=== PATIENT | male | born 1975 | race Caucasian/White ===

== ENCOUNTER → 2016-05-04 | Day surgery (SDC) | payer OTHER ==
[2016-05-01 08:59] VITALS: BMI 25.0
[~2016-05-04] VITALS: Ht 162.6 cm; Wt 68.2 kg
[~2016-05-04] MED LIST: ATROPINE SULFATE 0.1 MG/ML 5ML SYR IV PRN; BUPIVACAINE/EPINEPHRINE 0.5% MPF 1:200,000 30 ML VIAL INJ ONE; CEFAZOLIN 2000 MG/60 ML D5W IV SCH; DEXAMETHASONE SOD INJ 4 MG/ML VIAL ONE; FENTANYL CITRATE INJ 50 MCG/1 ML 2 ML VIAL IV PRN; FENTANYL CITRATE INJ 50 MCG/1 ML 2 ML VIAL ONE; HEPARIN SOD 5000 UNIT/0.5 ML CARP SC SCH; HYDR-5688 PO; HYDROCODONE/ACETAMOPHEN 5/325MG TAB PO PRN; IBUPROFEN 600 MG TAB PO PRN; KETOROLAC TROMETHAMINE 30 MG/ML VIAL IV. PRN; KETOROLAC TROMETHAMINE 30 MG/ML VIAL ONE; LABETALOL HCL IV 5 MG/ML 20ML IV PRN; LACTATED RINGER'S 1000ML 1,000 ML IV SCH; LIDOCAINE HCL 2% 2 ML VIAL (20MG/ML) ONE; MIDAZOLAM HCL 1 MG/ML 2ML VIAL ONE; MoRPHine SULFATE 10 MG/ML CARP/VIAL IV PRN; MoRPHine SULFATE 4 MG/ML 1 ML CARP\\VIAL IV PRN; ONDANSETRON INJ 2 MG/ML 2 ML VIAL IV PRN; ONDANSETRON INJ 2 MG/ML 2 ML VIAL ONE; PROPOFOL IV EMULSION 10 MG/ML 20 ML VIAL IV ONE; SODIUM CHLORIDE 0.9% 1000ML 1,000 ML IV SCH
[2016-05-04 12:14] VITALS: BP 126/62; PULSE 68; TEMP 36.6; O2SAT 97; Ht 162.6 cm; Wt 68.2 kg
--- NOTE | 2016-05-04 13:50 | Discharge Instructions ---
Discharge Instructions Visit Reason for Visit: Right Inguinal Hernia Discharge Discharge Diagnosis / Problem: hernia repair Discharge Goals Goal(s): Decrease discomfort Activity Recommendations Activity Limitations: per Instructions/Follow-up section Lifting Limitations: no more than 10 pounds Shower/Bathe: no limitations (ok to shower) Driving or Machine Use: resume 3 days after discharge Anesthesia . Post Anesthesia Instructions: If you have had General Anesthesia or IV Sedation: * Do not drive today. * Resume driving when surgeon permits. * Do not make important decisions or sign legal documents today. * Call surgeon for: 1. Temperature elevations greater than 101 degrees F. 2. Uncontrollable pain. 3. Excessive bleeding. 4. Persistent nausea and vomiting. 5. Medication intolerance (nausea, vomiting or rash). * For nausea and vomiting use only clear liquids such as: tea, soda, bouillon until nausea subsides, then gradually increase diet as tolerated. * If you have any concerns or questions, call your surgeon's office. If physician is unavailable and it is an emergency, call 911 or go to the nearest emergency room. . Instructions / Follow-Up Instructions / Follow-Up Dr. Rodriguez's office in 1-2 weeks, call [phone] if you do not already have an appt Ice right groin off and on alternating every 20 minutes until bedtime Diet Recommendations Recommended Home Diet: no limitations Pending Studies Studies pending at discharge: no Medical Emergencies . Who to Call and When: Medical Emergencies: If at any time you feel your situation is an emergency, please call 911 immediately. . Non-Emergent Contact Non-Emergency issues call your: Surgeon Call Non-Emergent contact if: you have a fever, temperature is above 101.5, your pain is not controlled, wound has increased redness . . "Provider Documentation" section prepared by Octavio Wei.
--- NOTE | 2016-05-04 14:07 | History & Physical Bridge Note ---
H&P Re-Evaluation Bridge Note: I have examined the patient, reviewed the History & Physical and in the interval since the performance of the History & Physical I have noted the following changes of clinical significance: No changes noted
--- NOTE | 2016-05-04 15:27 | [facility] Operative Report ---
Operative Report Operative Date May 04, 2016. Pre-Operative Diagnosis Right Inguinal Hernia Post-Operative Diagnosis direct and indirect [facility] Procedure(s) Performed open right inguinal hernia repair with mesh Surgeon Dr. Rodriguez Bevel Gear Generator Operator Surgeon(s) Octavio Wei PA-C Estimated Blood Loss 10ml Findings direct and indirect inguinal hernia Specimens none Complication(s) None Disposition Recovery Room / PACU I attest to the content of the Intraoperative Record and any orders documented therein. Any exceptions are noted below.
--- NOTE | 2016-05-04 16:03 | Anesthesiology Progress Note ---
Anesthesia Post Op Note Date & Time May 04, 2016 at 16:02 Vital Signs Pain Intensity: 0 Vital Signs Past 12 Hours Date Time Temp Pulse Resp B/P Pulse Ox O2 Delivery O2 Flow Rate FiO2 05/04/16 15:55 36.6 72 14 110/58 100 Nasal Cannula 2 05/04/16 15:45 62 14 104/51 100 Mask 5 05/04/16 15:35 65 14 98/51 98 Mask 10 05/04/16 15:29 36.5 66 14 99/49 98 Mask 10 05/04/16 12:14 36.6 68 16 126/62 97 Room Air Notes Mental Status: alert / awake / arousable, participated in evaluation Pt Amnestic to Procedure: Yes Nausea / Vomiting: adequately controlled Pain: adequately controlled Airway Patency, RR, SpO2: stable & adequate BP & HR: stable & adequate Hydration State: stable & adequate Anesthetic Complications: no major complications apparent
[2016-05-04 16:10] VITALS: BP 113/62; PULSE 59; TEMP 36.3; O2SAT 100
[2016-05-04 16:41] VITALS: BP 114/51; PULSE 60; O2SAT 97
[2016-05-04 17:11] VITALS: BP 110/49; PULSE 62; TEMP 36.5; O2SAT 97
--- NOTE | 2016-05-05 09:26 | OPERATIVE REPORT ---
DATE OF OPERATION: 05/04/2016 PREOPERATIVE DIAGNOSIS: Right inguinal hernia. POSTOPERATIVE DIAGNOSIS: Direct and indirect right inguinal hernias. PROCEDURE: Open right inguinal hernia repair with mesh. SURGEON: Dr. Rodriguez. [employer] OPERATOR: Chidi Wei PA-C. ESTIMATED BLOOD LOSS: Approximately 15 mL. COMPLICATIONS: No immediate complications. ANESTHESIA: General with laryngeal mask airway. OPERATION AND FINDINGS: OPERATIVE NOTE: After informed consent was obtained, the patient was taken to the operating suite and placed in supine position. After successful placement of laryngeal mask airway the right groin was shaved. A Tin[place] catheter was placed and the right groin was sterilely prepped and draped in usual fashion. I made an incision in the right groin with a 10 blade scalpel and carried it down through the soft tissue using electrocautery. I skeletonized the external oblique aponeurosis and then incised it with a fresh 15 blade scalpel. Metzenbaum scissors were used to extend this distally through the external ring as well as for several centimeters proximally. Once in the inguinal canal, we used primarily blunt dissection to free the cord and cord structures from surrounding anatomy. We were able to slightly tease it off the pubic bone, place a finger around the cord structures as well as a [place] drain. We immediately noticed a moderate sized direct defect coming up through the floor of the canal. When we inspected the cord and cord structures we also noted an indirect sac. We were able to tease the sac off of the cord structures using blunt dissection as well as a small amount of electrocautery. Once we were able to get the sac the whole way down to its neck we were able to divide the sac and tie it off using 2-0 Vicryl and then dunked the trunk of the sac back down into the abdominal cavity. We did thoroughly irrigate the wound. We used a piece of polypropylene lopez-holed mesh as an onlay. We secured it distally to Manuel's ligament, laterally along the shelving portion of Poupart's ligament, and medially along the midline musculature. The "arms" of the mesh were wrapped around behind the cord and cord structures and secured to underlying muscle. We used 0 Ethibond suture throughout procedure to secure the mesh. We thoroughly irrigated the wound again. There was adequate hemostasis. The mesh laid nice and tension free and was not impinging on the cord structures. I was happy with the repair. We then closed the external oblique aponeurosis using 2-0 Vicryl in a running fashion. Soft tissue was irrigated and closed using 3-0 Vicryl and 4-0 Monocryl for the skin. Marcaine prior to closure was injected around the edges of the mesh. We also injected the skin at the end of the case for postoperative analgesia. Skin glue was used as a dressing. The patient was awakened, extubated, and transferred to recovery in stable condition. I attest to the content of the Intraoperative Record and any orders documented therein. Any exceptio ns are noted below.
== END | disposition home or self-care (01) ==
LOC: C.ACU 12:00
PROVIDERS: ATTEND Surgery
DX: K40.90 Unilateral inguinal hernia, without obstruction or gangrene, not specified as recurrent (principal); Z87.828 Personal history of other (healed) physical injury and trauma

== ENCOUNTER → 2016-10-08 | Outpatient (CLI) | payer OTHER ==
[~2016-10-08] MED LIST changes: -ATROPINE SULFATE 0.1 MG/ML 5ML SYR IV PRN; -BUPIVACAINE/EPINEPHRINE 0.5% MPF 1:200,000 30 ML VIAL INJ ONE; -CEFAZOLIN 2000 MG/60 ML D5W IV SCH; -DEXAMETHASONE SOD INJ 4 MG/ML VIAL ONE; -FENTANYL CITRATE INJ 50 MCG/1 ML 2 ML VIAL IV PRN; -FENTANYL CITRATE INJ 50 MCG/1 ML 2 ML VIAL ONE; +GADAVIST IV PRN; -HEPARIN SOD 5000 UNIT/0.5 ML CARP SC SCH; -HYDROCODONE/ACETAMOPHEN 5/325MG TAB PO PRN; -IBUPROFEN 600 MG TAB PO PRN; -KETOROLAC TROMETHAMINE 30 MG/ML VIAL IV. PRN; -KETOROLAC TROMETHAMINE 30 MG/ML VIAL ONE; -LABETALOL HCL IV 5 MG/ML 20ML IV PRN; -LACTATED RINGER'S 1000ML 1,000 ML IV SCH; -LIDOCAINE HCL 2% 2 ML VIAL (20MG/ML) ONE; -MIDAZOLAM HCL 1 MG/ML 2ML VIAL ONE; -MoRPHine SULFATE 10 MG/ML CARP/VIAL IV PRN; -MoRPHine SULFATE 4 MG/ML 1 ML CARP\\VIAL IV PRN; -ONDANSETRON INJ 2 MG/ML 2 ML VIAL IV PRN; -ONDANSETRON INJ 2 MG/ML 2 ML VIAL ONE; -PROPOFOL IV EMULSION 10 MG/ML 20 ML VIAL IV ONE; -SODIUM CHLORIDE 0.9% 1000ML 1,000 ML IV SCH
--- NOTE | 2016-10-08 15:55 | DIAGNOSTIC IMAGING REPORT ---
ORBIT RADIOGRAPHS 3 VIEWS HISTORY: Pre-MRI pre-MRI screening. COMPARISON: None. FINDINGS: There are no radiopaque foreign bodies identified within the orbits. IMPRESSION: No radiopaque foreign bodies identified within the orbits. Electronically signed by: Otto Orellana M.D. 10/08/2016 3:54 PM Dictated Date/Time: 10/08/2016 3:54 PM
--- NOTE | 2016-10-08 16:57 | DIAGNOSTIC IMAGING REPORT ---
PELVIS MRI WITH AND WITHOUT INTRAVENOUS CONTRAST HISTORY: PUBIC BONE PAIN TECHNIQUE: Multiplanar multisequence MRI of the pelvis was performed both before and after the intravenous administration of contrast. COMPARISON STUDY: None. FINDINGS: Mild marrow edema within the medial aspect of the bilateral pubic bones with small marginal osteophytes and subchondral sclerosis at the symphysis pubis. 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 No acute fracture or dislocation within the pelvis or hips. Prior right inguinal hernia repair. No evidence for recurrent hernia. The bladder is unremarkable. No pelvic free fluid. No hip effusions. Cartilage spaces within the hips are maintained for age. Small focal areas of marrow edema within the sacrum adjacent to the bilateral sacroiliac joints. This is nonspecific but favors mild degenerative change. Small T2 hyperintense focus within the right posterior iliac bone measuring 7 mm. This is of doubtful clinical significance. IMPRESSION: 1. 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 2. Prior right inguinal hernia repair. No evidence for recurrent hernia. 3. No fracture or dislocation within the pelvis or hips. Electronically signed by: Rishabh Sykes M.D. 10/08/2016 4:55 PM Dictated Date/Time: 10/08/2016 4:49 PM
== END | disposition home or self-care (01) ==
LOC: C.MRI 15:30
PROVIDERS: ATTEND Surgery
DX: M89.9 Disorder of bone, unspecified (principal); M86.9 Osteomyelitis, unspecified

== ENCOUNTER 2017-09-01 21:03 | Emergency (ER) | payer OTHER ==
[~2017-09-01] VITALS: Ht 162.6 cm; Wt 73.3 kg
[~2017-09-01 21:03] MED LIST changes: +AMT10 PO; -GADAVIST IV PRN; -HYDR-5688 PO
[2017-09-01 21:12] VITALS: TEMP 36.9; Ht 162.6 cm; Wt 73.3 kg
[2017-09-01] MEDS ORDERED: KETOROLAC TROMETHAMINE 30 MG/ML VIAL IV STA (21:32)
[2017-09-01] MEDS ORDERED: OPTIRAY 320 IV PRN (21:45)
[2017-09-01 22:00] LABS: BASO % 0.6 %; BASO ABS # 0.05 K/uL (0-0.2); EOS % 1.9 %; EOS ABS # 0.16 K/uL (0-0.5); HEMATOCRIT 42.8 % (42-52); HEMOGLOBIN 15.5 g/dL (14.0-18.0); IG# 0.02 K/uL (0.00-0.02); LYMPH % 34.6 %; LYMPH ABS # 2.89 K/uL (1.2-3.4); MEAN CELL VOLUME 85.1 fL (80-100); MEAN CORPUSCULAR HEMOGLOBIN 30.8 pg (25-34); MEAN CORPUSCULAR HGB CONC 36.2 g/dl (32-36); MEAN PLATELET VOLUME 8.4 fL (7.4-10.4); NEUT % 56.7 %; NEUT ABS # 4.74 K/uL (1.4-6.5); PLATELET COUNT 183 K/uL (130-400); RED CELL DISTRIBUTION WIDTH CV 13.3 % (11.5-14.5); RED CELL DISTRIBUTION WIDTH SD 41.3 fL (36.4-46.3); WHITE BLOOD COUNT 8.36 K/uL (4.8-10.8)
[2017-09-01 22:20] LABS: ALBUMIN 4.2 gm/dl (3.4-5.0); CALCIUM 8.5 mg/dl (8.5-10.1); CREATININE 1.04 mg/dl (0.60-1.40); POTASSIUM 3.6 mmol/L (3.5-5.1); TOTAL PROTEIN 7.6 gm/dl (6.4-8.2)
[2017-09-01 23:35] VITALS: BP 124/70; PULSE 66; O2SAT 98
--- NOTE | 2017-09-01 23:57 | EMERGENCY ROOM VISIT NOTE ---
History First contact with patient: 21:24 Chief Complaint: ABDOMINAL PAIN Stated Complaint: PAIN IN STOMACH FROM HERNIA AND NERVE BLOCK Nursing Triage Summary: Ambulates to room. Report RLQ abd pain. Pt reports pain RLQ since he had his hernia surgery. Pt reports had a nerve block a few days ago with no relief. Pt reported the continual pain to pain management and he was told it could take up two weeks to get relief. History of Present Illness The patient is a 42 year old male who presents to the Emergency Room with complaints of right lower quadrant abdominal pain. The patient reports that he has had chronic pain in the right lower abdomen since having a hernia surgery at the beginning of last year. He has been seeing pain management and has had steroid injections, nerve blocks and also had the nerve cauterized. He had a nerve block last week and has had increased pain since then. He states that the pain is a constant, aching pain which is sharp and piercing at times. The pain seems to be worsened with movement. He rates his discomfort a 10/10. He denies history of any other abdominal surgeries. He denies nausea or vomiting. He does report that he has alternating constipation and diarrhea, which has been chronic since the surgery. He feels that he has increased frequency of urination. He denies any fevers or dysuria. Review of Systems A complete 10 point review of systems was reviewed with the patient with pertinent positives and negatives as per history of present illness. All else were negative. Past Medical/Surgical History Medical Problems: (1) Tonsillectomy (2) ulcers Social History Smoking Status: Never Smoker Alcohol Use: occasionally Drug Use: none Marital Status: Housing Status: lives with family Occupation Status: employed Current/Historical Medications Scheduled Amitriptyline HCl (Amitriptyline HCl), 10 MG PO DAILY Physical Exam Vital Signs Date Time Temp Pulse Resp B/P (MAP) Pulse Ox O2 Delivery O2 Flow Rate FiO2 09/01/17 23:35 66 16 124/70 98 Room Air 09/01/17 21:12 36.9 57 18 124/79 97 Room Air Physical Exam VITALS: Vitals are noted on the nurse's note and reviewed by myself. Vital signs stable. GENERAL: This is a 42-year-old male, in no acute distress, nondiaphoretic, well- developed well-nourished. SKIN: The skin was without rashes. EYES: PERRLA. MOUTH: Mucous membranes moist. NECK: Supple, no rigidity. HEART: Regular rate and rhythm without murmurs gallops or rubs. LUNGS: Clear to auscultation bilaterally without wheezes, rales or rhonchi. ABDOMEN: Well-healed surgical scar noted in the right lower quadrant. Positive bowel sounds x 4. Tenderness to palpation of the right lower quadrant. No guarding or rebound tenderness. NEURO: Patient was alert and oriented to person place and time. PSYCH: Appropriate affect. Medical Decision & Procedures ER Provider Diagnostic Interpretation: CT ABDOMEN & PELVIS With Contrast: Impression: No acute abnormality identified. Findings: The liver, spleen, pancreas, gallbladder, adrenal glands, kidneys, ureters, and bladder have a normal noncontrast appearance. There is no evidence of bowel obstruction or acute appendicitis. Moderate colonic stool burden. No abnormal bowel wall thickening is seen. Radiologist: Joseluis Quiroz MD Laboratory Results 09/01/17 21:45 Red Blood Count 5.03, Mean Corpuscular Volume 85.1, Mean Corpuscular Hemoglobin 30.8, Mean Corpuscular Hemoglobin Concent 36.2, Mean Platelet Volume 8.4, Neutrophils (%) (Auto) 56.7, Lymphocytes (%) (Auto) 34.6, Monocytes (%) (Auto) 6.0, Eosinophils (%) (Auto) 1.9, Basophils (%) (Auto) 0.6, Neutrophils # (Auto) 4.74, Lymphocytes # (Auto) 2.89, Monocytes # (Auto) 0.50, Eosinophils # (Auto) 0.16, Basophils # (Auto) 0.05 09/01/17 21:45 Test 09/01/17 21:30 09/01/17 21:45 Urine Color YELLOW Urine Appearance CLEAR (CLEAR) Urine pH 6.0 (4.5-7.5) Urine Specific [place] 1.020 (1.000-1.030) Urine Protein NEG (NEG) Urine Glucose (UA) NEG (NEG) Urine Ketones NEG (NEG) Urine Occult Blood NEG (NEG) Urine Nitrite NEG (NEG) Urine Bilirubin NEG (NEG) Urine Urobilinogen NEG (NEG) Urine Leukocyte Esterase NEG (NEG) White Blood Count 8.36 K/uL (4.8-10.8) Red Blood Count 5.03 M/uL (4.7-6.1) Hemoglobin 15.5 g/dL (14.0-18.0) Hematocrit 42.8 % (42-52) Mean Corpuscular Volume 85.1 fL (80-100) Mean Corpuscular Hemoglobin 30.8 pg (25-34) Mean Corpuscular Hemoglobin Concent 36.2 g/dl (32-36) Platelet Count 183 K/uL (130-400) Mean Platelet Volume 8.4 fL (7.4-10.4) Neutrophils (%) (Auto) 56.7 % Lymphocytes (%) (Auto) 34.6 % Monocytes (%) (Auto) 6.0 % Eosinophils (%) (Auto) 1.9 % Basophils (%) (Auto) 0.6 % Neutrophils # (Auto) 4.74 K/uL (1.4-6.5) Lymphocytes # (Auto) 2.89 K/uL (1.2-3.4) Monocytes # (Auto) 0.50 K/uL (0.11-0.59) Eosinophils # (Auto) 0.16 K/uL (0-0.5) Basophils # (Auto) 0.05 K/uL (0-0.2) RDW Standard Deviation 41.3 fL (36.4-46.3) RDW Coefficient of Variation 13.3 % (11.5-14.5) Immature Granulocyte % (Auto) 0.2 % Immature Granulocyte # (Auto) 0.02 K/uL (0.00-0.02) Anion Gap 4.0 mmol/L (3-11) Est Creatinine Clear Calc Drug Dose 84.0 ml/min Estimated GFR () 101.4 Estimated GFR (Non- 87.5 BUN/Creatinine Ratio 28.6 (10-20) Calcium Level 8.5 mg/dl (8.5-10.1) Total Bilirubin 0.3 mg/dl (0.2-1) Aspartate Amino Transf (AST/SGOT) 23 U/L (15-37) Alanine Aminotransferase (ALT/SGPT) 41 U/L (12-78) Alkaline Phosphatase 78 U/L (45-117) Total Protein 7.6 gm/dl (6.4-8.2) Albumin 4.2 gm/dl (3.4-5.0) Globulin 3.4 gm/dl (2.5-4.0) Albumin/Globulin Ratio 1.2 (0.9-2) Medications Administered Medications (Trade) Dose Ordered Sig/Konrad Route Start Time Stop Time Status Last Admin Dose Admin Ketorolac Tromethamine (Toradol Inj) 30 mg NOW STAT IV 09/01/17 21:32 09/01/17 21:33 DC 09/01/17 21:55 30 MG Medical Decision Differential diagnosis includes abscess, appendicitis, acute exacerbation of chronic abdominal pain, kidney stone, UTI, diverticulitis, colitis, among others. The patient is a 42-year-old male who presents today complaining of right lower quadrant abdominal pain. Labs revealed no leukocytosis, anemia or concerning electrolyte abnormalities. Urinalysis was not suggestive of infection. CT of the abdomen and pelvis was performed and read by dajuanrad with no acute findings. Patient does admit to a history of chronic abdominal pain and this may be an exacerbation of his pain. He was advised to contact his pain management provider to discuss this visit with them. The patient's case was reviewed with Dr. Olea, ED attending physician, who agreed with my assessment and treatment plan. Based on the patient's presentation and work up, I feel the patient is stable for outpatient treatment. The patient was educated to return to the emergency department for any worsening of their current condition or new/concerning symptoms. He will follow up with his PCP. Medication Reconcilliation Current Medication List: was personally reviewed by me Blood Pressure Screening Patient's blood pressure: Normal blood pressure Impression Primary Impression: Right lower quadrant abdominal pain Departure Information Dispostion Home / Self-Care Condition GOOD Referrals Petar Tinajero III, M.D. (PCP) Patient Instructions [facility] Additional Instructions You have been treated in the Emergency Department for your Abdominal Pain. Laboratory results and imaging studies have ruled out any emergent causes for your abdominal pain which would warrant admission or surgery. For pain control, you can use the following [id number] medicines (if >12 yo): - Regular strength (325mg/tab) Tylenol (acetaminophen) 2 tabs every 4-6 hours as needed. Do not exceed 12 tablets in a 24 hour period. Avoid taking more than 4 grams (4000 mg) of Tylenol per day. This includes any other sources of acetaminophen you may take on a regular basis. - Regular strength (200 mg/tab) Advil (ibuprofen) 1-2 tabs every 4-6 hours as needed. Do not exceed a dose of 3200 mg per day. Drink plenty of water and stay well hydrated. As with any trip to the Emergency Department, you should follow-up with your Primary Care Provider from today's visit. You should also contact your pain management provider regarding her abdominal pain. Return to the emergency department if your symptoms persist despite treatment plan outlined above or if the following symptoms occur: Worsening pain, fevers, vomiting, or other new/concerning symptoms.
--- NOTE | 2017-09-02 07:12 | DIAGNOSTIC IMAGING REPORT ---
ABDOMEN AND PELVIS CT WITH IV CONTRAST CT DOSE: 325.73 mGy.cm HISTORY: Acute right lower quadrant abdominal pain RLQ pain, worsening chronic pain, recent nerve block TECHNIQUE: Multiaxial CT images of the abdomen and pelvis were performed following the use of intravenous contrast. A dose lowering technique was utilized adhering to the principles of ALARA. COMPARISON STUDY: CT abdomen and pelvis 11/22/2007. FINDINGS: Mild dependent subsegmental bibasilar atelectasis. Calcified granuloma about the medial segment right middle lobe. There is no pneumatosis or pneumoperitoneum. The imaged inferior cardiac chambers are unremarkable. The liver, gallbladder, spleen, pancreas and adrenal glands are within normal limits. Kidneys are within normal limits with the exception of a 5 mm low attenuating lesion of the posterior interpolar right kidney suggesting renal cyst. No renal calculi or obstructive uropathy. Ureters and bladder are unremarkable. Suggestion of a small bilateral hydroceles. Aorta and IVC are unremarkable. There is no bulky adenopathy. No bowel obstruction or focal bowel wall thickening. Mild to moderate volume of formed stool throughout the colon. Normal appendix. No ascites or mesenteric inflammatory changes. The soft tissues are within normal limits. The bones appear to be intact. Moderate intervertebral disc space narrowing with posterior disc osteophyte complex formation at L5-S1. IMPRESSION: 1. No acute intra-abdominal or intrapelvic abnormality identified. 2. Normal appendix. 3. Prior granulomatous disease. 4. Suggestion of small bilateral hydroceles. Electronically signed by: Alonso Palm M.D. 09/02/2017 7:11 AM Dictated Date/Time: 09/02/2017 7:08 AM
== END 2017-09-02 00:12 | disposition home or self-care (01) ==
LOC: C.EDB 21:04 → C.EDC 09-02 00:12
DX: R10.31 Right lower quadrant pain (principal); G89.29 Other chronic pain; Z79.899 Other long term (current) drug therapy

== ENCOUNTER 2018-11-08 21:12 | Observation (INO) ==
--- OUTSIDE RECORDS SUMMARY | 2018-11-08 21:15 | External Medical Summary | Continuity of Care Document ---
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 Start: 20-Sep-2017 Refills: 0 Procedures History of Tonsillectomy Status: Complet ed History of Inguinal Hernia Repair Status : Completed 04-May-2016 0:00 Immunizations Immunizations not documented Family History Mother Family history of In good health Status: Active Father Family history of In good health Status: Active Social History - Smoking Status Former smoker Plan of Treatment Planned Observations Planned Goals not documented Results No Known Results Results not documented Encounters Appointment; Surg [facility], Nursing Station 15-Nov-2017 13:45 Encounter Diagnosis: Problem not documented Appointment; Akbar Rodriguez DO 20-Sep-2017 10:20 Encounter Diagnosis: Problem not documented
[2018-11-08 21:50] LABS: Basophils # (auto) 0.05 K/uL (0-0.2); Basophils % (auto) 0.7 %; Eosinophils # (auto) 0.26 K/uL (0-0.5); Eosinophils % (auto) 3.6 %; Hematocrit (blood only) 44.7 % (42-52); Hemoglobin 15.8 g/dL (14.0-18.0); Immature Granulocytes # (auto) 0.01 K/uL (0.00-0.02); Immature Granulocytes % (auto) 0.1 %; Lymphocytes # (auto) 2.45 K/uL (1.2-3.4); Lymphocytes % (auto) 34.1 %; Mean Corpuscular Hgb Conc 35.3 g/dL (32-36); Mean Corpuscular Volume 83.7 fL (80-100); Monocytes # (auto) 0.46 K/uL (0.11-0.59); Monocytes % (auto) 6.4 %; Neutrophils # (auto) 3.96 K/uL (1.4-6.5); Neutrophils % (auto) 55.1 %; Platelet Count 197 K/uL (130-400); RDW Coefficient of Variation 13.2 % (11.5-14.5); RDW Standard Deviation 39.5 fL (36.4-46.3); Red Blood Count 5.34 M/uL (4.7-6.1); White Blood Count 7.19 K/uL (4.8-10.8)
[2018-11-08 22:06] LABS: Alanine Aminotransferase 35 U/L (12-78); Aspartate Aminotransferase 21 U/L (15-37); BUN Creatinine Ratio 19.2 (10-20); Blood Urea Nitrogen 20 mg/dl (7-18); Calcium 8.7 mg/dl (8.5-10.1); Carbon Dioxide 22 mmol/L (21-32); Chloride 107 mmol/L (98-107); Creatinine Clr Calc Pharmacy 84.6 ml/min; Est GFR (African American) 100.7; Est GFR (Non-African American) 86.9; Glucose 130 mg/dl (70-99); Sodium 140 mmol/L (136-145)
[2018-11-08 22:11] LABS: Albumin Globulin Ratio 1.2 (0.9-2); Alkaline Phosphatase 101 U/L (45-117); Bilirubin,Total 0.2 mg/dl (0.2-1); Globulin 3.4 gm/dl (2.5-4.0); Total Protein 7.4 gm/dl (6.4-8.2); Troponin I < 0.015 ng/ml (0-0.045)
[2018-11-08 22:21] LABS: INR 1.1 (0.9-1.1); Partial Thromboplastin Time 26.5 Seconds (21.0-31.0); Prothrombin Time 11.3 Seconds (9.0-12.0)
--- NOTE | 2018-11-08 22:26 | XRay Report ---
XR chest 1V portable CLINICAL HISTORY: Chest Pain dyspnea COMPARISON STUDY: No previous studies for comparison. FINDINGS: The bones soft tissues and hemidiaphragms are normal. The cardiomediastinal silhouette is n ormal. The lungs are clear. The pulmonary vasculature is normal. Minimal parenchymal infiltrative luisana nge medial right base IMPRESSION: Minimal parenchymal infiltrative change right base. Otherwise negative chest. The above report was generated using voice recognition software. It may contain grammatical, syntax or spelling errors. Electronically signed by: Otto Orellana M.D. 11/08/2018 10:25 PM
[2018-11-08] MEDS ORDERED: POTASSIUM CHLORIDE 20 MEQ TABCR PO STA (23:55)
--- NOTE | 2018-11-09 00:50 | Emergency Department Note ---
History of Present Illness General Chief complaint: Chest Pain Stated complaint: CHEST PAIN Source: patient Mode of arrival: ambulatory Limitations: no limitations History of Present Illness Maximum Pain Intensity: 6 This patient is a 43-year-old male who presents to the emergency department complaining of chest pain. The patient states that he has been having intermittent chest pain over the past 2 weeks. He states that the pain occurs at random, but mostly at night. He does occasionally have pain throughout the day as well. He states that the pain is not brought on by exertion necessarily, but he does have some shortness of breath with exertion. The pain radiates from his left chest into his left shoulder and arm. It is associated with shortness of breath, occasional diaphoresis and lightheadedness. The pain is occasionally relieved by walking around. Otherwise, there are no aggravating or alleviating factors. He does not try any medication for the pain. He states that he had an episode of pain beginning 2 hours prior to arrival. This has gradually resolved. Patient states that he had a hernia surgery 3 months ago and has residual pain from this. He also has been working 85 hours/week and has been very stressed due to this and his chronic pain. He denies any past medical history of cardiac disease. He denies history of hypertension or hyperlipidemia. He is a former smoker. He is unsure of his family history. Home Medications Home Medications Medication Instructions Recorded Confirmed Type Protein Shake 1 dose PO DAILY 12/27/17 11/08/18 History cyclobenzaprine 2.5 mg PO ONCE 11/08/18 11/08/18 History gabapentin 300 mg PO HS 11/08/18 11/08/18 History Allergies Allergy/AdvReac Type Severity Reaction Status Date / Time No Known Allergies Allergy Verified 12/27/17 19:07 Past Med/Surg History Medical History Right lower quadrant abdominal pain (Acute) Genitofemoral neuralgia of right side Social History Preferred Language: Tamazight Communication Ability: Effective Beliefs That Will Affect Care: None Current Living Situation: Spouse Other Information That Helps Us Care for You: Yes Feels Safe at Home: Yes Smoking Status: Never smoker Hx Alcohol Use: Yes Alcohol type: hard liquor Hx Substance Use: No Review of Systems A total of 10 systems reviewed and were otherwise negative Physical Exam Vital Signs Vital Signs - 24 hr 11/08/18 21:14 11/08/18 23:40 Temperature 36.8 C Temperature Source Oral Sepsis Recent Fever Within 48 Hours No Sepsis Action Taken by Nursing No Action Required Pulse Rate 86 Pulse Rate [Apical] 73 Respiratory Rate 18 18 Respiratory Effort / Characteristics Non-Labored Respiratory Depth Normal Normal Blood Pressure 136/83 Blood Pressure [Right Arm] 126/69 Blood Pressure Mean 100 Blood Pressure Mean [Right Arm] 88 Pulse Oximetry 96 97 Oxygen Delivery Method Room Air Room Air VITALS: Vitals are noted on the nurse's note and reviewed by myself. Vital signs stable. GENERAL: This is a 43-year-old male, in no acute distress, nondiaphoretic, well- developed well-nourished. SKIN: The skin was without rashes, erythema, edema, or bruising. There is no tenting of the skin. Capillary reflex less than 2 seconds. EARS: External auditory canals clear, tympanic membranes pearly gibson without erythema or effusion bilaterally. EYES: Pupils equal round and reactive to light and accommodation. MOUTH: Mucous membranes moist. Tonsils are not enlarged. Pharynx without erythema or exudate. NECK: Supple without nuchal rigidity. No lymphadenopathy. HEART: Regular rate and rhythm without murmurs gallops or rubs. LUNGS: Clear to auscultation bilaterally without wheezes, rales or rhonchi. No retractions or accessory muscle use. MUSCULOSKELETAL: Full range of motion throughout. Strength 5/5 throughout. NEURO: Patient was alert and oriented to person place and time. Course Consultations Consultation #1: Case was discussed with Dr. Kohli, [facility]. He will evaluate the patient for admission/observation. Administered Medications Sodium Chloride (Nss 1000ml) 1,000 mls @ 80 mls/hr IV .[id number] Stop: 11/09/18 16:00 Last Admin: 11/09/18 03:01 Dose: 80 mls/hr Documented by: [id number] Discontinued Medications Potassium Chloride (Klor-Con M20) 40 meq PO NOW STA Stop: 11/08/18 23:56 Last Admin: 11/09/18 00:08 Dose: 40 meq Documented by: [id number] Potassium Chloride (Klor-Con M20) 60 meq PO NOW STA Stop: 11/09/18 01:56 Last Admin: 11/09/18 03:01 Dose: 60 meq Documented by: [id number] Medical Decision Making Differential Diagnosis Differential diagnosis includes acute coronary syndrome, pulmonary embolism, pneumothorax, pericarditis, myocarditis, endocarditis, anxiety, musculoskeletal pain, GERD, costochondritis, pneumonia, among others. Home Medications Current Medication List: was personally reviewed by me Laboratory Data Attestation: I reviewed the patient's lab results. Result diagrams: 11/08/18 21:40 11/08/18 21:40 Lab Results 11/08/18 11/08/18 11/08/18 Range/Units 21:40 21:40 21:40 WBC 7.19 (4.8-10.8) K/uL RBC 5.34 (4.7-6.1) M/uL Hgb 15.8 (14.0-18.0) g/dL Hct 44.7 (42-52) % MCV 83.7 (80-100) fL MCH 29.6 (25-34) pg MCHC 35.3 (32-36) g/dL RDW Std Deviation 39.5 (36.4-46.3) fL RDW Coeff of Dale 13.2 (11.5-14.5) % Plt Count 197 (130-400) K/uL MPV 9.0 (7.4-10.4) fL Immature Gran % (Auto) 0.1 % Neut % (Auto) 55.1 % Lymph % (Auto) 34.1 % Bradford % (Auto) 6.4 % Eos % (Auto) 3.6 % Baso % (Auto) 0.7 % Immature Gran # (Auto) 0.01 (0.00-0.02) K/uL Neut # (Auto) 3.96 (1.4-6.5) K/uL Lymph # (Auto) 2.45 (1.2-3.4) K/uL Bradford # (Auto) 0.46 (0.11-0.59) K/uL Eos # (Auto) 0.26 (0-0.5) K/uL Baso # (Auto) 0.05 (0-0.2) K/uL PT 11.3 (9.0-12.0) Seconds INR 1.1 (0.9-1.1) APTT 26.5 (21.0-31.0) Seconds PTT Ratio 1.0 Sodium 140 (136-145) mmol/L Potassium 3.0 L (3.5-5.1) mmol/L Chloride 107 (98-107) mmol/L Carbon Dioxide 22 (21-32) mmol/L Anion Gap 11.0 (3-11) BUN 20 H (7-18) mg/dl Creatinine 1.04 (0.6-1.4) mg/dl Est Cr Clr Drug Dosing 84.6 ml/min Est GFR ( Amer) 100.7 Est GFR (Non-Af Amer) 86.9 BUN/Creatinine Ratio 19.2 (10-20) Glucose 130 H (70-99) mg/dl Calcium 8.7 (8.5-10.1) mg/dl Total Bilirubin 0.2 (0.2-1) mg/dl AST 21 (15-37) U/L ALT 35 (12-78) U/L Alkaline Phosphatase 101 (45-117) U/L Troponin I < 0.015 (0-0.045) ng/ml Total Protein 7.4 (6.4-8.2) gm/dl Albumin 4.0 (3.4-5.0) gm/dl Globulin 3.4 (2.5-4.0) gm/dl Albumin/Globulin Ratio 1.2 (0.9-2) Imaging Data Attestation: I personally reviewed and interpreted this imaging study as follows: Radiologist's Impression: XR chest 1V portable CLINICAL HISTORY: Chest Pain dyspnea COMPARISON STUDY: No previous studies for comparison. FINDINGS: The bones soft tissues and hemidiaphragms are normal. The cardiomediastinal silhouette is normal. The lungs are clear. The pulmonary vasculature is normal. Minimal parenchymal infiltrative change medial right base IMPRESSION: Minimal parenchymal infiltrative change right base. Otherwise negative chest. ECG Data Attestation: I personally reviewed and interpreted this ECG as follows: Indication: chest pain Rate (beats per minute): 76 Rhythm: normal sinus Findings: no acute ischemic change and no ectopy Change: no significant change Blood Pressure Blood Pressure Findings: Normal blood pressure Blood Pressure Disposition: did not require urgent referral MDM Narrative The patient is a 43-year-old male who presents today complaining of intermittent chest pain. Labs revealed no leukocytosis or anemia. Patient was hypokalemic with potassium of 3.0 which was repleted. Initial troponin negative. EKG with no evidence of ischemia. Patient does have concerning history of left-sided pain with radiation to the shoulder and arm associated with diaphoresis and shortness of breath. Given this, the [facility] was consulted to evaluate the patient for further evaluation. Impression & Plan Left-sided chest pain Discharge Plan Visit Data *Final* Discharge Date/Time: 11/09/18 01:40 Chief Complaint: Chest Pain Stated Complaint: CHEST PAIN ED Provider: Eliana Centeno ED Midlevel Provider: Sarah Kraft Discharge Problem: Left-sided chest pain Patient Disposition: Admitted As Inpatient Discharge Instructions Interventions: ED Discharge Assessment Last Done: 11/09/18 01:40
[2018-11-09] MEDS ORDERED: ACETAMINOPHEN 325 MG TAB PO PRN (01:55)
[2018-11-09] MEDS ORDERED: ONDANSETRON INJ 2 MG/ML 2 ML VIAL IV PRN (01:55)
[2018-11-09] MEDS ORDERED: NITROGLYCERIN SL 0.4 MG/TAB TAB SL PRN (01:55)
[2018-11-09] MEDS ORDERED: POTASSIUM CHLORIDE 20 MEQ TABCR PO STA (01:55)
[2018-11-09] MEDS: SODIUM CHLORIDE 0.9% 1000ML 1,000 ML IV SCH ×2 (03:01→14:43)
--- NOTE | 2018-11-09 05:33 | History and Physical Report ---
DATE OF ADMISSION: 11/09/2018 CHIEF COMPLAINT: Chest pain. HISTORY OF PRESENT ILLNESS: This is a 43-year-old male with past medical history significant for recent right inguinal hernia surgery with complications with nerve damage and has some pain going on, on gabapentin and following with surgery, presents with chest pain going on for last 2 weeks. Pain is on and off, comes on its own and it lasted for 1-2 hours and subsides on its own. When the pain comes, he ambulates to make it better. It is on left side of the chest, radiating to the left arm, 5-6 in severity, sometimes pressure like and sometimes sharp pain, sometimes associated with sweating and shortness of breath, and dizziness. Currently, resting comfortable and hemodynamically stable. Currently, no headache, no blurred vision, no earache, no runny nose, no sore throat, no difficulty swallowing. Appetite is okay. No nausea, no abdominal pain. Normal bowel and bladder movements. No swelling in the legs, no rash. ALLERGIES: CYMBALTA. PAST MEDICAL HISTORY: As mentioned above. PAST SURGICAL HISTORY: Lasik surgery, tonsillectomy, adenoidectomy, right inguinal hernia repair. MEDICATIONS: Gabapentin 300 mg p.o. at bedtime. FAMILY HISTORY: Significant for father had glaucoma. Mother had blood disorder. SOCIAL HISTORY: and lives with his . Former smoker, quit in 2002. Smoked 1.5 pack a day for 15 years. No alcohol use, no drug use. REVIEW OF SYMPTOMS: As per HPI. Rest of review of systems negative. PHYSICAL EXAMINATION: GENERAL: The patient is alert and oriented, not in acute distress. VITAL SIGNS: Temperature 36.8, pulse 73, respiratory rate 18, blood pressure 126/69, oxygen 97% room air. HEENT: No pallor, no icterus. Pupils equal, round, and reactive to light. NECK: No JVD, no neck masses, no carotid bruits. CARDIOVASCULAR: S1, S2 heard, regular rate and rhythm, no murmur, no gallop. RESPIRATORY SYSTEM: Normal AP diameter. Normal accessory muscle. No wheezing, no crackles. ABDOMEN: Soft, bowel sounds present, nontender. No distention. Right inguinal hernia repair incision healed. EXTREMITIES: No edema, no erythema. CLINICAL PROFESSOR: Nonfocal. LABS: WBC 7.1, hemoglobin 15.8, hematocrit 44.7, platelets 197. PT 11.3, INR 1.1, APTT 26.5. Sodium 140, potassium 3, chloride 107, bicarbonate 22, BUN 20, creatinine 1.04, serum glucose 130, calcium 8.7, total bilirubin 0.2, AST 21, ALT 35, alkaline phosphatase is 101. Troponin I less than 0.015. Chest x-ray minimal parenchymal infiltrate right base, otherwise negative chest x-ray. EKG: Normal sinus rhythm with rate of 76, no acute ST changes seen. ASSESSMENT AND PLAN: This is a 43-year-old male who presents with chest pain. 1. Chest pain, rule out acute coronary syndrome. Initial workup is negative. We will follow serial cardiac enzymes and echocardiogram, n.p.o. Stress test in a.m. as per cardiology. We will follow fasting lipid profile. 2. Hypokalemia, will replace. 3. Deep venous thrombosis prophylaxis, SCDs. 4. Disposition: Observation in tele floor. Expect to discharge home and follow with family doctor. Level 1 full code. MTDD
[2018-11-09 05:41] LABS: Basophils # (auto) 0.05 K/uL (0-0.2); Basophils % (auto) 0.7 %; Eosinophils # (auto) 0.46 K/uL (0-0.5); Eosinophils % (auto) 6.2 %; Hematocrit (blood only) 43.7 % (42-52); Hemoglobin 15.1 g/dL (14.0-18.0); Immature Granulocytes # (auto) 0.01 K/uL (0.00-0.02); Immature Granulocytes % (auto) 0.1 %; Lymphocytes # (auto) 3.27 K/uL (1.2-3.4); Lymphocytes % (auto) 44.2 %; Mean Corpuscular Hgb Conc 34.6 g/dL (32-36); Mean Corpuscular Volume 84.4 fL (80-100); Mean Platelet Volume 9.2 fL (7.4-10.4); Monocytes # (auto) 0.55 K/uL (0.11-0.59); Monocytes % (auto) 7.4 %; Neutrophils # (auto) 3.06 K/uL (1.4-6.5); Neutrophils % (auto) 41.4 %; Platelet Count 197 K/uL (130-400); RDW Coefficient of Variation 13.4 % (11.5-14.5); Red Blood Count 5.18 M/uL (4.7-6.1)
[2018-11-09 06:15] LABS: BUN Creatinine Ratio 19.6 (10-20); Blood Urea Nitrogen 20 mg/dl (7-18); Calcium 8.3 mg/dl (8.5-10.1); Carbon Dioxide 26 mmol/L (21-32); Chloride 111 mmol/L (98-107); Creatinine Clr Calc Pharmacy 88.2 ml/min; Est GFR (African American) 106.9; Est GFR (Non-African American) 92.2; Glucose 105 mg/dl (70-99); Magnesium 2.3 mg/dl (1.8-2.4); Potassium 4.1 mmol/L (3.5-5.1); Sodium 144 mmol/L (136-145)
[2018-11-09 06:21] LABS: Chol HDL Ratio 4; Cholesterol 217 mg/dl (0-200); HDL Cholesterol 50 mg/dl; LDL Cholesterol Calculated 144 mg/dl; Triglycerides 117 mg/dl (0-150); Troponin I < 0.015 ng/ml (0-0.045); VLDL Cholesterol 23 mg/dl
--- NOTE | 2018-11-09 12:36 | Consultation Report ---
DATE OF CONSULTATION: 11/09/2018 INPATIENT CARDIOLOGY CONSULTATION CONSULTATION REQUESTED BY: Dr. Kohli. REASON FOR CONSULTATION: Chest pain. HISTORY OF PRESENT ILLNESS: Mr. Linda is a very pleasant 43-year-old gentleman who presented to [facility] late in the evening of 11/08/2018 with complaints of chest pain. The patient states that he has been having chest pain for approximately in the last 2 weeks. He describes it as a pressure-like sensation across his left precordium associated with dull achy sensation radiating down his shoulder into his left arm. He states that there is no pattern to it. It is not constant. It does come and go, but there is no association with activity or movement. He notes that he has been under an extreme amount of stress lately after undergoing a repeat hernia repair and restarting work working 2 jobs approximately 85 hours a week. Otherwise, he denies any palpitations, lightheadedness, dizziness, or syncope. He does get short of breath during these episodes of chest discomfort and states that normally when this happens, he walks around his kitchen island in a [place] to help himself calm down and the discomfort slowly resolved. PAST SURGICAL HISTORY: 1. Hernia repair complicated by nerve damage and repeat surgery. 2. Tonsillectomy and adenoidectomy. 3. LASIK surgery. MEDICAL ILLNESSES: 1. Chronic back pain. 2. Adjustment disorder with depressed mood. FAMILY HISTORY: Denies any premature coronary artery disease or sudden cardiac . SOCIAL HISTORY: The patient is a former smoker, quit 15 years ago. He drinks alcohol on a regular basis, mainly to help control his pain at this point. He denies any recreational drug use. He is and lives at home with his . He has 2 children, ages 14 and 12. 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 REVIEW OF SYSTEMS: As per HPI, all other review of systems reviewed and negative at this time. ALLERGIES: CYMBALTA. MEDICATIONS AN OUTPATIENT: 1. Flexeril p.r.n. 2. Ibuprofen p.r.n. PHYSICAL EXAMINATION: VITAL SIGNS: Temperature 36.5, pulse 53, respiratory rate 12, blood pressure 110/66. GENERAL: Awake, alert, oriented x3, in no acute distress, mildly anxious. HEENT: Normocephalic, atraumatic. Pupils equal, round, reactive to light and accommodation. Extraocular muscles intact. Anicteric sclerae. Moist mucous membranes. NECK: No JVD, no bruit. CARDIOVASCULAR: Regular. No S4. Normal S1 and S2. No S3. No murmurs, rubs or gallops. PULMONARY: Clear to auscultation bilaterally. No rales, rhonchi, or wheezing. ABDOMEN: Bowel sounds x4, soft. No rebound, guarding, tenderness. No organomegaly. EXTREMITIES: No clubbing, cyanosis or edema. +2 pedal pulses bilaterally. SKIN: Warm and dry. MUSCULOSKELETAL: Direct palpation across his left precordium and left shoulder were unable to reproduce the discomfort. TEST RESULTS: A 12-lead EKG performed in the Emergency Department independently reviewed at this time shows normal sinus rhythm at 76 beats per minute, normal axis, nonspecific intraventricular conduction delay, nonspecific T-wave flattening anteriorly. No signs of active ischemia. Troponin levels are negative x2. Exercise stress echocardiogram was nonischemic at 13 minutes on Claudio protocol IMPRESSION: 1. Chest pain, noncardiac in nature. 2. High likelihood anxiety. RECOMMENDATIONS: It was my pleasure to see Mr. Linda in consultation today. From a cardiac standpoint, given the fact that he completed 13 minutes of Claudio protocol without reproduction of his chest pain, the fact there are no ischemic findings on the testing, I do not see any cardiac component to his discomfort. So, no further cardiac testing or followup is necessary at this time. I would recommend treatment for possible anxiety either prior to discharge or in followup with his family physician. Again, the patient does not require cardiology followup as an outpatient.
--- NOTE | 2018-11-09 14:17 | Hospitalist Progress Note ---
Date of Service November 09, 2018 Assessment & Plan (1) Atypical chest pain: ASSESSMENT AND PLAN: This is a 43-year-old male who presents with chest pain. 1. Chest pain, Acute Coronary Syndrome ruled out - troponin negative x 3 EKG no acute ischemia Echo: normal LV chamber size and wall thickness normal LV systolic function EF 60-65% no segmental left ventricular wall motion abnormalities normal diastolic function no significant valvular pathology Exercise stress test: Negative for Ischemia - Dr. Soliz, Cardioloogist, consulted chest pain felt to be non cardiac most likely Musculoskeletal or Anxiety related - cleared for d/c home ff up with PCP Dr. Tinajero on November 14, 2018 at 10:45am 2. Hypokalemia - replaced, resolved 3. Abnormal Finding on Chest Xray - IMPRESSION: Minimal parenchymal infiltrative change right base. Otherwise negative chest. - repeat Chest xray in 1 week to follow up Discharge to home ff up with PCP as noted above plan of care discussed with patient and his they are understanding, agreeable and comfortable with the plan of care Results & Data Vital Signs (Past 12 Hours) Vital Signs Temp Pulse Pulse Resp BP Pulse Ox 11/09/18 10:39 36.6 C 60 18 107/65 95 11/09/18 08:00 54 L 11/09/18 07:00 36.5 C 53 L 19 110/66 96 11/09/18 03:32 36.5 C 54 L 15 119/70 96
[2018-11-09] MEDS ORDERED: GABAPENTIN 300 MG CAP PO SCH (21:00)
--- NOTE | 2018-11-10 18:47 | Discharge Summary ---
Date of Service November 10, 2018 Admission HPI Per Admitting Provider CHIEF COMPLAINT: Chest pain. HISTORY OF PRESENT ILLNESS: This is a 43-year-old male with past medical history significant for recent right inguinal hernia surgery with complications with nerve damage and has some pain going on, on gabapentin and following with surgery, presents with chest pain going on for last 2 weeks. Pain is on and off, comes on its own and it lasted for 1-2 hours and subsides on its own. When the pain comes, he ambulates to make it better. It is on left side of the chest, radiating to the left arm, 5-6 in severity, sometimes pressure like and sometimes sharp pain, sometimes associated with sweating and shortness of breath, and dizziness. Currently, resting comfortable and hemodynamically stable. Currently, no headache, no blurred vision, no earache, no runny nose, no sore throat, no difficulty swallowing. Appetite is okay. No nausea, no abdominal pain. Normal bowel and bladder movements. No swelling in the legs, no rash. ALLERGIES: CYMBALTA. PAST MEDICAL HISTORY: As mentioned above. PAST SURGICAL HISTORY: Lasik surgery, tonsillectomy, adenoidectomy, right inguinal hernia repair. MEDICATIONS: Gabapentin 300 mg p.o. at bedtime. FAMILY HISTORY: Significant for father had glaucoma. Mother had blood disorder. SOCIAL HISTORY: and lives with his . Former smoker, quit in 2002. Smoked 1.5 pack a day for 15 years. No alcohol use, no drug use. REVIEW OF SYMPTOMS: As per HPI. Rest of review of systems negative. Admission Exam Per Admitting Provider PHYSICAL EXAMINATION: GENERAL: The patient is alert and oriented, not in acute distress. VITAL SIGNS: Temperature 36.8, pulse 73, respiratory rate 18, blood pressure 126/69, oxygen 97% room air. HEENT: No pallor, no icterus. Pupils equal, round, and reactive to light. NECK: No JVD, no neck masses, no carotid bruits. CARDIOVASCULAR: S1, S2 heard, regular rate and rhythm, no murmur, no gallop. RESPIRATORY SYSTEM: Normal AP diameter. Normal accessory muscle. No wheezing, no crackles. ABDOMEN: Soft, bowel sounds present, nontender. No distention. Right inguinal hernia repair incision healed. EXTREMITIES: No edema, no erythema. REGULATORY AFFAIRS SPECIALIST: Nonfocal. Principal Diagnosis ATYPICAL CHEST PAIN Discharge Exam General- oriented x 3, not in distress, speaks in sentences with no effort or accessory muscle use Head- atraumatic Eyes- PERRL, EOMI, anicteric ENT- oropharynx clear Neck- supple, no JVD, no adenopathy, no thyromegaly; carotids +2/2, no bruits appreciated Lungs- clear to auscultation bilaterally, no rales/wheezes Heart- normal rate, regular rhythm; no murmur, no gallop, no rub appreciated Abdomen- normal bowel sounds, nondistended, soft, nontender, no masses or hepatosplenomegaly Extremities- no pretibial edema, no calf tenderness; peripheral pulses intact Neuro- alert, oriented x 3; CN 2-12 grossly intact; motor 5/5 bilaterally;sensation 100% on all extremities; no other gross focal neurologic deficits Skin- warm & dry Discharge Data Allergies Allergy/AdvReac Type Severity Reaction Status Date / Time No Known Allergies Allergy Verified 12/27/17 19:07 Consultations 11/09/18 08:00 Consult Cardiology Routine Hospital Course (1) Atypical chest pain: ASSESSMENT AND PLAN: This is a 43-year-old male who presents with chest pain. 1. Chest pain, Acute Coronary Syndrome ruled out - troponin negative x 3 EKG no acute ischemia Echo: normal LV chamber size and wall thickness normal LV systolic function EF 60-65% no segmental left ventricular wall motion abnormalities normal diastolic function no significant valvular pathology Exercise stress test: Negative for Ischemia - Dr. Soliz, Cardioloogist, consulted chest pain felt to be non cardiac most likely Musculoskeletal or Anxiety related - cleared for d/c home ff up with PCP Dr. Tinajero on November 14, 2018 at 10:45am 2. Hypokalemia - replaced, resolved 3. Abnormal Finding on Chest Xray - IMPRESSION: Minimal parenchymal infiltrative change right base. Otherwise ne gative chest. - repeat Chest xray in 1 week to follow up ; follow-up clinically as an outpatient, Discharge to home ff up with PCP as noted above plan of care discussed with patient and his they are understanding, agreeable and comfortable with the plan of care Total Time Total Time Spent Total Time Spent (In Minutes): 40 minutes Discharge Plan Discharge Items Patient Disposition: Home - Self-Care Reason For Visit: CHEST PAIN Discharge Diagnosis: CHEST PAIN, LIKELY MUSCULOSKELETAL ETIOLOGY Discharge Goals: Diagnostic testing and Therapeutic intervention Activity: As commented below Activity Comment: RESUME ACTIVITY GRADUALLY TOLERATED Lifting: Wait until after follow-up appointment Exercise/Sports: Wait until after follow-up appointment Driving/Machine Use Comment: NO DRIVING WHILE STILL HAVING THE CHEST DISCOMFORT Non-emergency contact: Primary Care Provider Call non-emergency contact if: you have any medication questions, your symptoms worsen, your pain is not controlled, your pain is worsening and you have a fever Follow-up/Referrals: Petar Tinajero MD [Primary Care Provider] - 11/14/18 10:45 am Diet: Heart Healthy Addtl Provider Instructions: YOU MAY USE TYLENOL 500 MG EVERY 4-6 HOURS (DO NOT EXCEED 3,000MG/DAY) NEEDED FOR PAIN OR IBUPROFEN 400 MG EVERY 4-6 HOURS (WITH FOOD) NEEDED FOR PAIN. PLEASE CALL PRIMARY CARE PHYSICIAN OR RETURN TO THE ER IMMEDIATELY IF WITH RECURRENCE OR WORSENING OF SYMPTOMS. INCLUDE POTASSIUM RICH FOODS IN YOUR DAILY DIET- BANANAS, ORANGES, TOMATOES, ETC. DRINK PLENTY OF FLUIDS. Prescriptions: New potassium chloride [Klor-Con M20] 20 mEq tablet,ER particles/crystals 20 meq PO DAILY Qty: 7 RF: 0 Continued Protein Shake 1 dose PO DAILY RF: 0 gabapentin 300 mg capsule 300 mg PO HS RF: 0 Discontinued cyclobenzaprine 5 mg Tablet 2.5 mg PO ONCE RF: 0 Stand-Alone Forms: Call Back Authorization, [facility], Work/School Release (Inpt) Discharge Orders: Discharge Order (Routine); Ordered 11/09/18 Ordered By: Venkata Sylvester Admission Data Admit Date/Time: 11/09/18 01:04 Attending Provider: Venkata Sylvester Admit Provider: Chau Kohli Primary Care Provider: Petar Tinajero Other Providers: Gary Soliz ; Diego Velez ; Kirk Mcgrath ; Cal Vargas ; Darrell Good ; Otto Díaz ; Mihaela Myels ; Helen Thomson Service: Telemetry Other Interventions: Discharge Summary Assessment (RN) Last Done: 11/09/18 14:44 DC Date/Time DO NOT enter until pt leaves facility: 11/09/18 15:56
== END 2018-11-09 15:56 | disposition home or self-care (01) ==
LOC: ED 21:12 → 2S 21:12